=== PATIENT | male | born 1995 | race Caucasian/White ===

== ENCOUNTER 2016-11-15 14:51 | Emergency (ER) | payer SELFPAY ==
[~2016-11-15] VITALS: Ht 170.2 cm; Wt 54.4 kg
[2016-11-15 15:00] VITALS: BP 143/86
[2016-11-15] MEDS ORDERED: NAPR500T8 PO (15:25)
--- NOTE | 2016-11-15 15:26 | PHYS DOC ---
Past Medical History Past Medical History: Anxiety, Depression, Other Additional Past Medical Histor: ADD,PANIC ATTACKS Past Surgical History: No Surgical History Additional Information: SMOKES APPROXIMATELY 20 CIGARETTES A WEEK Alcohol Use: None Drug Use: Marijuana Adult General Chief Complaint Chief Complaint: BACK PAIN OR INJURY [facility] Patient is a 21 year old male presents with back pain for 4-5 months after lifting a box at work. Reports intermittent pain. Has not seen a doctor since incidient per patient. Denies numbness, tingling, incontinence, focal weakness, urinary symptoms. Has taken Tylenol, Tramadol and smoke marijuana to assist with pain at home with moderate relief. pain 03/25 currently. Request a work note till Saturday. Review of Systems Review of Systems Constitutional: Denies fever or chills Eyes: Denies change in visual acuity, redness, or eye pain HENT: Denies nasal congestion or sore throat Respiratory: Denies cough or shortness of breath Cardiovascular: No additional information not addressed in HPI GI: Denies abdominal pain, nausea, vomiting, bloody stools or diarrhea : Denies dysuria or hematuria Musculoskeletal: Back pain 4-5 months Integument: Denies rash or skin lesions Neurologic: Denies headache, focal weakness or sensory changes Endocrine: Denies polyuria or polydipsia Allergies Allergies Allergies Coded Allergies Type Severity Reaction Last Updated Verified No Known Drug Allergies 11/15/16 No Physical Exam Physical Exam Constitutional: Well developed, no acute distress, non-toxic appearance. HENT: Normocephalic, atraumatic, bilateral external ears normal, oropharynx moist, no oral exudates, nose normal. Eyes: PERRLA, EOMI, conjunctiva normal, no discharge. Neck: Normal range of motion, no tenderness, supple, no stridor. Cardiovascular:Heart rate regular rhythm, no murmur Lungs & Thorax: Bilateral breath sounds clear to auscultation Abdomen: Bowel sounds normal, soft, no tenderness, no masses, no pulsatile masses. Skin: Warm, dry, no erythema, no rash. Back: No midline tenderness, step off, deformity or crepitus. Left lumbar paraspinous tenderness Extremities: No tenderness, no cyanosis, no clubbing, ROM intact, no edema. [] Neurologic: Alert and oriented X 3, normal motor function, normal sensory function, no focal deficits noted. Psychologic: Affect normal, judgement normal, mood normal. [] Current Patient Data Vital Signs Vital Signs Date Time Temp Pulse Resp B/P Pulse Ox O2 Delivery O2 Flow Rate FiO2 11/15/16 15:00 98.5 90 18 143/86 98 Room Air 98.5 EKG EKG [] Radiology/Procedures Radiology/Procedures [] Impressions: 1. back pain Course & Med Decision Making Course & Med Decision Making Pertinent Labs and Imaging studies reviewed. (See chart for details) [] Dragon Disclaimer Dragon Disclaimer This electronic medical record was generated, in whole or in part, using a voice recognition dictation system. Departure Departure Impression: Primary Impression: Back pain Disposition: HOME, SELF-CARE Condition: STABLE Referrals: Yao WOOTEN MD Patient Instructions: Back Injury Prevention, [id number], Back Pain, Adult, [id number] Additional Instructions: Take medication as prescribed. Follow up with primary doctor in 1-2 days. return if any problems or concerns Scripts Naproxen 500 Mg Tablet.dr1 Tab PO BID PRN PAIN #30 TAB Ref 0 Prov:WAQAS CULVER APRN 11/15/16 WAQAS CULVER APRN Nov 15, 2016 15:25
== END 2016-11-15 15:31 | disposition home or self-care (01) ==
LOC: ER 14:51
DX: M54.5 Low back pain (principal); F32.9 Major depressive disorder, single episode, unspecified; F41.0 Panic disorder [episodic paroxysmal anxiety]; F98.8 Other specified behavioral and emotional disorders with onset usually occurring in childhood and adolescence; F17.210 Nicotine dependence, cigarettes, uncomplicated; F12.10 Cannabis abuse, uncomplicated
CPT/HCPCS: 99283

== ENCOUNTER 2017-03-19 10:30 | Emergency (ER) | payer SELFPAY ==
[~2017-03-19] VITALS: Ht 170.2 cm; Wt 54.4 kg
[~2017-03-19 10:30] MED LIST: NAPR500T8 PO
[2017-03-19 11:13] LABS: BILIRUBIN,URINE NEGATIVE (NEG); GLUCOSE,URINE NEGATIVE (NEG); NITRITE,URINE NEGATIVE (NEG); PH,URINE 7.5; PROTEIN,URINE NEGATIVE (NEG-TRACE); UROBILINOGEN,URINE 0.2 mg/dL (0.2 mg/dL)
[2017-03-19 11:17] LABS: BARBITURATES NEG (NEG); BENZODIAZEPINES NEG (NEG); CANNABINOIDS POS (NEG); COCAINE NEG (NEG); METHADONE NEG (NEG); OPIATES NEG (NEG); PHENCYCLIDINE NEG (NEG)
[2017-03-19 11:24] LABS: BACTERIA,URINE 0 /HPF (0-FEW); RBC,URINE 0 /HPF (0-2); SQUAMOUS EPITHELIAL CELL,UR OCC /LPF; WBC,URINE 0 /HPF (0-4)
--- NOTE | 2017-03-19 11:50 | PHYS DOC ---
Past Medical History Past Medical History: Anxiety, Depression, Other Additional Past Medical Histor: ADD,PANIC ATTACKS Past Surgical History: No Surgical History Alcohol Use: Occasionally Drug Use: Marijuana Adult General Chief Complaint Chief Complaint: LOWER BACK PAIN OR INJURY [facility] HPI Patient is a 21 year old male with history of anxiety and depression who presents today complaining of bilateral low back pain and kidney pain for 1 year. Patient denies any known injury. Patient states he has history of kidney stones when he was young. He states he is suspicious he has been passing a couple kidney stones though he denies any hematuria, denies any urgency or frequency but states he has had intermittent dysuria, he would like to be checked for STDs and treated. He states he took Klonopin tablets from a friend today. Patient denies any nausea vomiting. Denies any fever. PCP none Review of Systems Review of Systems Constitutional: Per history of present illness Eyes: Denies change in visual acuity, redness, or eye pain [] HENT: Denies nasal congestion or sore throat [] Respiratory: Denies cough or shortness of breath [] Cardiovascular: No additional information not addressed in HPI [] GI: Per history of present illness : See history of present illness Musculoskeletal: Back pain, flank pain Integument: Denies rash or skin lesions [] Neurologic: Denies headache, focal weakness or sensory changes [] Endocrine: Denies polyuria or polydipsia [] Allergies Allergies Allergies Coded Allergies Type Severity Reaction Last Updated Verified No Known Drug Allergies 11/15/16 No Physical Exam Physical Exam Constitutional: Well developed, well nourished, no acute distress, non-toxic appearance. [] HENT: Normocephalic, atraumatic, bilateral external ears normal, oropharynx moist, no oral exudates, nose normal. [] Eyes: PERRLA, EOMI, conjunctiva normal, no discharge. [] Neck: Normal range of motion, no tenderness, supple, no stridor. [] Cardiovascular:Heart rate regular rhythm, no murmur [] Lungs & Thorax: Bilateral breath sounds clear to auscultation [] Abdomen: Bowel sounds normal, soft, no tenderness, no masses, no pulsatile masses. [] Skin: Warm, dry, no erythema, no rash. [] Back: No tenderness, no CVA tenderness. [] Extremities: No tenderness, no cyanosis, no clubbing, ROM intact, no edema. [] Neurologic: Alert and oriented X 3, normal motor function, normal sensory function, no focal deficits noted. [] Psychologic: Affect normal, judgement normal, mood normal. [] Current Patient Data Vital Signs Vital Signs Date Time Temp Pulse Resp B/P (MAP) Pulse Ox O2 Delivery O2 Flow Rate FiO2 03/19/17 10:39 98.3 106 18 139/86 (103) 96 Room Air 98.3 Lab Values Laboratory Tests Test 03/19/17 10:50 Urine Collection Type Unknown Urine Color Yellow Urine Clarity Clear Urine pH 7.5 Urine Specific [place] 1.010 Urine Protein Negative mg/dL (NEG-TRACE) Urine Glucose (UA) Negative mg/dL (NEG) Urine Ketones (Stick) Negative mg/dL (NEG) Urine Blood Negative (NEG) Urine Nitrite Negative (NEG) Urine Bilirubin Negative (NEG) Urine Urobilinogen Dipstick 0.2 mg/dL (0.2 mg/dL) Urine Leukocyte Esterase Negative (NEG) Urine RBC 0 /HPF (0-2) Urine WBC 0 /HPF (0-4) Urine Squamous Epithelial Cells Occ /LPF Urine Bacteria 0 /HPF (0-FEW) Urine Opiates Screen Neg (NEG) Urine Methadone Screen Neg (NEG) Urine Barbiturates Neg (NEG) Urine Phencyclidine Screen Neg (NEG) Urine Amphetamine/Methamphetamine Neg (NEG) Urine Benzodiazepines Screen Neg (NEG) Urine Cocaine Screen Neg (NEG) Urine Cannabinoids Screen Pos (NEG) Urine Ethyl Alcohol Neg (NEG) EKG EKG [] Radiology/Procedures Radiology/Procedures []PROCEDURE: CT ABDOMEN PELVIS WO CONTRAST Indication bilateral abdominal pain. Axial images through the abdomen and pelvis were obtained. Examination was tailored for the detection of renal and/or ureteral calculi. Note is made of a previous examination 12/23/2011. There are several soft tissue nodules in the visualized lower lung mays. These are new relative to the previous exam. In a 21-year-old male they likely reflect granulomatous disease. On the basis of imaging metastatic disease is not excluded. Clinical correlation advised. No acute finding is seen at either lung base. There is no pleural fluid. The liver and spleen appear unremarkable. The gallbladder appears grossly normal. No pancreatic pathology is seen. There are no adrenal masses. There are no renal calculi on either side. There is no hydronephrosis hydroureter or definite calcification seen along the course of either ureter. An acute finding in the abdomen is not apparent. No acute finding is seen in the pelvis. IMPRESSION: No acute finding seen in the abdomen or pelvis. Several soft tissue nodules in the visualized lower lung mays, new relative to the study 5 years ago. In a 21-year-old these are probably a reflection of prior granulomatous disease. Other etiologies are not entirely excluded but less likely given the patient's age. (This impression assumes no known malignancy in this patient).0 PQRS Compliance Statement: One or more of the following individualized dose reduction techniques were utilized for this examination: 1. Automated exposure control 2. Adjustment of the mA and/or kV according to patient size 3. Use of iterative reconstruction technique DICTATED and SIGNED BY: CUCO CARVAJAL MD DATE: 03/19/17 1213 CC: DELFIN ROWLEY APRN; NO PCP; NON,STAFF ~ Course & Med Decision Making Course & Med Decision Making Pertinent Labs and Imaging studies reviewed. (See chart for details) This is a 21-year-old male patient who presents today complaining of low back pain as well as flank pain for 1 year. Patient believes he has been passing kidney stone. Patient is also complaining of dysuria, he like to be tested for STDs and treated, he was given Flagyl Rocephin and azithromycin. Urine negative for infection. CT of the abdomen and pelvic was negative for any acute findings but was noted for some lung nodule with concern for malignancy or granulomatous disease. Patient states he has history of smoking. Denies any history of malignancy. He was discharged with instructions to consider smoking cessation and follow-up with a PCP from the list provided. He was discharged with naproxen and Flexeril for his chronic back pain. Dragon Disclaimer Dragon Disclaimer This electronic medical record was generated, in whole or in part, using a voice recognition dictation system. Departure Departure Impression: Primary Impression: Back pain Additional Impression: Concern about STD in male without diagnosis Disposition: 01 HOME, SELF-CARE Condition: STABLE Referrals: NO PCP (PCP) Follow-up with your own doctor in 1-2 weeks Patient Instructions: Back Pain, Adult Additional Instructions: You were seen for chronic back pain. Your CT of the abdomen and pelvic did not show any kidney stones. Please consider smoking cessation. Your CT is showing you could have lung masses or previous lung disease this needs to be followed up with a primary care doctor from the list provided. Scripts Cyclobenzaprine Hcl (CYCLOBENZAPRINE HCL) 10 Mg Tablet 1 TAB PO TID, #30 TAB Prov: DELFIN ROWLEY APRN 03/19/17 Naproxen (NAPROXEN) 500 Mg Tablet.dr 1 TAB PO BID, #60 TAB 1 Refill Prov: DELFIN ROWLEY APRN 03/19/17 Problem Qualifiers Primary Impression: Back pain Back pain location: low back pain Chronicity: chronic Back pain laterality : bilateral Sciatica presence: without sciatica Qualified Codes: M54.5 - Low back pain; G89.29 - Other chronic pain DELFIN ROWLEY APRN Mar 19, 2017 11:50
--- NOTE | 2017-03-19 12:22 | RAD ---
Indication bilateral abdominal pain. Axial images through the abdomen and pelvis were obtained. Examination was tailored for the detection of renal and/or ureteral calculi. Note is made of a previous examination 12/23/2011. There are several soft tissue nodules in the visualized lower lung mays. These are new relative to the previous exam. In a 21-year-old male they likely reflect granulomatous disease. On the basis of imaging metastatic disease is not excluded. Clinical correlation advised. No acute finding is seen at either lung base. There is no pleural fluid. The liver and spleen appear unremarkable. The gallbladder appears grossly normal. No pancreatic pathology is seen. There are no adrenal masses. There are no renal calculi on either side. There is no hydronephrosis hydroureter or definite calcification seen along the course of either ureter. An acute finding in the abdomen is not apparent. No acute finding is seen in the pelvis. IMPRESSION: No acute finding seen in the abdomen or pelvis. Several soft tissue nodules in the visualized lower lung mays, new relative to the study 5 years ago. In a 21-year-old these are probably a reflection of prior granulomatous disease. Other etiologies are not entirely excluded but less likely given the patient's age. (This impression assumes no known malignancy in this patient).0 PQRS Compliance Statement: One or more of the following individualized dose reduction techniques were utilized for this examination: 1. Automated exposure control 2. Adjustment of the mA and/or kV according to patient size 3. Use of iterative reconstruction technique
[2017-03-19] MEDS ORDERED: NAPR500T8 PO (12:44)
[2017-03-19] MEDS ORDERED: CYCL10TA2 PO (12:44)
[2017-03-19 13:00] VITALS: BP 110/77
[2017-03-19] MEDS ORDERED: cefTRIAXone IM 250 MG VIAL IM ONE (13:15)
[2017-03-19] MEDS ORDERED: metroNIDAZOLE 500 MG TABLET PO ONE (13:15)
[2017-03-19] MEDS ORDERED: AZITHROMYCIN 250 MG TABLET. PO ONE (13:15)
== END 2017-03-19 13:27 | disposition home or self-care (01) ==
LOC: ER 10:30
DX: Z11.3 Encounter for screening for infections with a predominantly sexual mode of transmission (principal); G89.29 Other chronic pain; M54.5 Low back pain; F17.200 Nicotine dependence, unspecified, uncomplicated; F12.10 Cannabis abuse, uncomplicated; F98.8 Other specified behavioral and emotional disorders with onset usually occurring in childhood and adolescence; F41.9 Anxiety disorder, unspecified; F32.9 Major depressive disorder, single episode, unspecified; Z87.442 Personal history of urinary calculi
CPT/HCPCS: 36415; 74176; 80305; 80320; 81001; 87491; 87591; 96372; 99285; J0696; Q0144; G0481

== ENCOUNTER 2017-11-06 16:54 | Emergency (ER) | payer BC ==
[2017-11-06] MEDS: traMADol 50 MG TABLET PO ×2 (17:57)
== END 2017-11-06 18:42 | disposition home or self-care (01) ==
LOC: ER 16:54
DX: R07.81 Pleurodynia (principal); F41.9 Anxiety disorder, unspecified; F32.9 Major depressive disorder, single episode, unspecified; F12.10 Cannabis abuse, uncomplicated; F41.0 Panic disorder [episodic paroxysmal anxiety]; Z87.891 Personal history of nicotine dependence
CPT/HCPCS: 71046; 99284

== ENCOUNTER 2018-05-09 03:05 | Emergency (ER) | payer BC ==
[~2018-05-09] VITALS: Ht 170.2 cm; Wt 52.2 kg
[~2018-05-09 03:05] MED LIST changes: +CYCL10TA2 PO
[2018-05-09] MEDS ORDERED: ONDANSETRON PF 4 MG/2 ML VIAL. IV ONE (03:30)
[2018-05-09] MEDS ORDERED: KETOROLAC 15 MG/ML VIAL. IV ONE (03:30)
[2018-05-09] MEDS ORDERED: IV NORMAL SALINE 1000ML BAG 1,000 ML IV SCH (03:30)
[2018-05-09 03:37] LABS: BASO # 0.1 x10^3/uL (0.0-0.2); BASO % 1 % (0-3); EOS # 0.1 x10^3/uL (0.0-0.7); EOS % 2 % (0-3); HEMATOCRIT 46.1 % (39.0-53.0); HEMOGLOBIN 16.5 g/dL (13.0-17.5); LYMPH # 2.9 x10^3/uL (1.0-4.8); LYMPH % 36 % (24-48); MEAN CORPUSCULAR HEMOGLOBIN 33 pg (25-35); MEAN CORPUSCULAR HGB CONC 36 g/dL (31-37); MEAN CORPUSCULAR VOLUME 92 fL (79-100); MONO # 0.7 x10^3/uL (0.0-1.1); MONO % 9 % (0-9); NEUT # 4.2 x10^3uL (1.8-7.7); NEUT % 52 % (31-73); PLATELET COUNT 321 x10^3/uL (140-400); RED BLOOD COUNT 4.99 x10^6/uL (4.30-5.70); RED CELL DISTRIBUTION WIDTH 12.8 % (11.5-14.5)
[2018-05-09 03:44] LABS: CALCIUM 8.8 mg/dL (8.5-10.1); CREATININE 0.9 mg/dL (0.7-1.3); GFR 106.5; POTASSIUM 3.8 mmol/L (3.5-5.1)
[2018-05-09 03:50] LABS: ALBUMIN 4.2 g/dL (3.4-5.0); ALBUMIN/GLOBULIN RATIO 1.2 (1.0-1.7); TOTAL BILIRUBIN 0.5 mg/dL (0.2-1.0); TOTAL PROTEIN 7.6 g/dL (6.4-8.2)
--- NOTE | 2018-05-09 04:10 | RAD ---
INDICATION: bilateral flank pain COMPARISON: March 19, 2017 TECHNIQUE: Axial CT images obtained through the abdomen and pelvis without contrast. Limited assessment of solid organ structures and vasculature secondary to lack of intravenous contrast. One or more of the following individualized dose reduction techniques were utilized for this examination: 1. Automated exposure control; 2. Adjustment of the mA and/or kV according to patient size; 3. Use of iterative reconstruction technique. FINDINGS: Multiple nodules are again seen in the partially visualized bilateral lower lungs. This includes several at the right lung base measuring up to about 8 mm and several at left lung base measuring up to about 8 mm. Abdominal aorta is not grossly aneurysmal. No intrahepatic bile duct dilation. No peripancreatic fluid collection. Spleen unremarkable. 13 mm suspected cystic lesion left kidney. Prominence of left extrarenal pelvis. Urinary bladder is partially distended. No definite right-sided hydronephrosis. No dilated loops of bowel to suggest obstruction. IMPRESSION: 1. No definite evidence of bowel obstruction. 2. Prominence of left extrarenal pelvis again seen without a definite obstructive ureter stone. 3. Repeat demonstration of numerous pulmonary nodules at the partially visualized lung bases which was also present on March 19, 2017. These are of unknown etiology and correlation is needed as to whether the patient has any symptoms of a chronic inflammatory or infectious process or any history of neoplasm but overall these appear similar when compared to 2017 but only a small portion of the chest is evaluated on this exam Electronically signed by: Deon Rasmussen MD (05/09/2018 4:07 AM) [facility]
[2018-05-09 04:16] LABS: BILIRUBIN,URINE NEGATIVE (NEG); CLARITY,URINE CLOUDY; COLOR,URINE YELLOW; NITRITE,URINE NEGATIVE (NEG); PH,URINE 8.5; PROTEIN,URINE NEGATIVE (NEG-TRACE)
[2018-05-09 04:21] LABS: AMORPHOUS SEDIMENT,UR PRESENT /HPF; BACTERIA,URINE 0 /HPF (0-FEW); RBC,URINE 0 /HPF (0-2); SQUAMOUS EPITHELIAL CELL,UR OCC /LPF; WBC,URINE 0 /HPF (0-4)
[2018-05-09] MEDS ORDERED: cefTRIAXone IM 250 MG VIAL IM ONE (05:00)
[2018-05-09] MEDS ORDERED: AZITHROMYCIN 250 MG TABLET. PO ONE (05:00)
--- NOTE | 2018-05-09 05:02 | PHYS DOC ---
Past Medical History Past Medical History: Anxiety, Depression, Other Additional Past Medical Histor: ADD,PANIC ATTACKS Past Surgical History: No Surgical History Alcohol Use: Occasionally Drug Use: Marijuana Adult General Chief Complaint Chief Complaint: FLANK PAIN HPI HPI Patient is a 22-year-old male who presents with complaint of lower back pain as well as urinary discomfort has been present for the last week. He indicates that he has had a clear penile discharge as well. He indicates that he has not had intercourse in close to a year. He denies any fever. He rates his pain to be a 6 out of 10. He states that nothing improves the pain and urinating worsens the pain. Review of Systems Review of Systems Constitutional: Denies fever or chills [] Respiratory: Denies cough or shortness of breath [] Cardiovascular: Denies chest pain[] GI: Denies abdominal pain, nausea, vomiting or diarrhea [] : Complains of dysuria and penile discharge[] Musculoskeletal: Complains of lower back pain[] All other systems were reviewed and found to be within normal limits, except as documented in this note. Current Medications Current Medications Current Medications Medications (Trade) Dose Ordered Sig/Milly Start Time Stop Time Status Last Admin Dose Admin Azithromycin (Zithromax) 1,000 mg 1X ONCE 05/09/18 05:00 05/09/18 05:01 DC Ceftriaxone Sodium (Rocephin Im) 250 mg 1X ONCE 05/09/18 05:00 05/09/18 05:01 DC Ketorolac Tromethamine (Toradol 15mg Vial) 15 mg 1X ONCE 05/09/18 03:30 05/09/18 03:31 DC 05/09/18 03:30 15 MG Ondansetron HCl (Zofran) 4 mg 1X ONCE 05/09/18 03:30 05/09/18 03:31 DC 05/09/18 03:30 4 MG Sodium Chloride 1,000 ml @ 1,000 mls/hr Q1H 05/09/18 03:30 05/09/18 04:29 DC 05/09/18 03:30 1,000 MLS/HR Allergies Allergies Allergies Coded Allergies Type Severity Reaction Last Updated Verified No Known Drug Allergies 11/15/16 No Physical Exam Physical Exam Constitutional: Well developed, well nourished, no acute distress, non-toxic appearance. [] HENT: Normocephalic, atraumatic, bilateral external ears normal, oropharynx moist, no oral exudates, nose normal. [] Eyes: PERRLA, EOMI, conjunctiva normal, no discharge. [] Neck: Normal range of motion, no tenderness, supple, no stridor. [] Cardiovascular:Heart rate regular rhythm, no murmur [] Lungs & Thorax: Bilateral breath sounds clear to auscultation [] Abdomen: Bowel sounds normal, soft, with minimal suprapubic tenderness. [] Skin: Warm, dry, no erythema, no rash. [] Back: There is mild tenderness to palpation in the lower lumbar paraspinal musculature bilaterally. [] Extremities: No tenderness, no cyanosis, no clubbing, ROM intact, no edema. [] Neurologic: Alert and oriented X 3, normal motor function, normal sensory function, no focal deficits noted. [] Current Patient Data Vital Signs Vital Signs Date Time Temp Pulse Resp B/P (MAP) Pulse Ox O2 Delivery O2 Flow Rate FiO2 05/09/18 03:22 97.9 94 18 130/80 (97) 99 Room Air 97.9 Lab Values Laboratory Tests Test 05/09/18 03:28 05/09/18 04:12 White Blood Count 8.0 x10^3/uL (4.0-11.0) Red Blood Count 4.99 x10^6/uL (4.30-5.70) Hemoglobin 16.5 g/dL (13.0-17.5) Hematocrit 46.1 % (39.0-53.0) Mean Corpuscular Volume 92 fL (79-100) Mean Corpuscular Hemoglobin 33 pg (25-35) Mean Corpuscular Hemoglobin Concent 36 g/dL (31-37) Red Cell Distribution Width 12.8 % (11.5-14.5) Platelet Count 321 x10^3/uL (140-400) Neutrophils (%) (Auto) 52 % (31-73) Lymphocytes (%) (Auto) 36 % (24-48) Monocytes (%) (Auto) 9 % (0-9) Eosinophils (%) (Auto) 2 % (0-3) Basophils (%) (Auto) 1 % (0-3) Neutrophils # (Auto) 4.2 x10^3uL (1.8-7.7) Lymphocytes # (Auto) 2.9 x10^3/uL (1.0-4.8) Monocytes # (Auto) 0.7 x10^3/uL (0.0-1.1) Eosinophils # (Auto) 0.1 x10^3/uL (0.0-0.7) Basophils # (Auto) 0.1 x10^3/uL (0.0-0.2) Sodium Level 142 mmol/L (136-145) Potassium Level 3.8 mmol/L (3.5-5.1) Chloride Level 106 mmol/L (98-107) Carbon Dioxide Level 29 mmol/L (21-32) Anion Gap 7 (6-14) Blood Urea Nitrogen 8 mg/dL (8-26) Creatinine 0.9 mg/dL (0.7-1.3) Estimated GFR (Cockcroft-Gault) 106.5 BUN/Creatinine Ratio 9 (6-20) Glucose Level 106 mg/dL (70-99) H Calcium Level 8.8 mg/dL (8.5-10.1) Total Bilirubin 0.5 mg/dL (0.2-1.0) Aspartate Amino Transferase (AST) 14 U/L (15-37) L Alanine Aminotransferase (ALT) 22 U/L (16-63) Alkaline Phosphatase 102 U/L (46-116) Total Protein 7.6 g/dL (6.4-8.2) Albumin 4.2 g/dL (3.4-5.0) Albumin/Globulin Ratio 1.2 (1.0-1.7) Urine Collection Type Unknown Urine Color Yellow Urine Clarity Cloudy Urine pH 8.5 Urine Specific [place] 1.020 Urine Protein Negative mg/dL (NEG-TRACE) Urine Glucose (UA) Negative mg/dL (NEG) Urine Ketones (Stick) Negative mg/dL (NEG) Urine Blood Negative (NEG) Urine Nitrite Negative (NEG) Urine Bilirubin Negative (NEG) Urine Urobilinogen Dipstick 1.0 mg/dL (0.2 mg/dL) Urine Leukocyte Esterase Negative (NEG) Urine RBC 0 /HPF (0-2) Urine WBC 0 /HPF (0-4) Urine Squamous Epithelial Cells Occ /LPF Urine Amorphous Sediment Present /HPF Urine Bacteria 0 /HPF (0-FEW) Laboratory Tests 05/09/18 03:28 Laboratory Tests 05/09/18 03:28 EKG EKG [] Radiology/Procedures Radiology/Procedures [] Course & Med Decision Making Course & Med Decision Making Pertinent Labs and Imaging studies reviewed. (See chart for details) [] Dragon Disclaimer Dragon Disclaimer This electronic medical record was generated, in whole or in part, using a voice recognition dictation system. Departure Departure Impression: Primary Impression: Prostatitis Disposition: HOME, SELF-CARE Condition: STABLE Referrals: NO PCP (PCP) Patient Instructions: Prostatitis Additional Instructions: Take prescribed medication as directed and follow-up with your primary care provider in the next few days. Scripts Sulfamethoxazole/Trimethoprim (BACTRIM DS TABLET) 1 Each Tablet 1 TAB PO BID, #20 TAB Prov: JOON ENCISO Jr. DO 05/09/18 Problem Qualifiers Primary Impression: Prostatitis Prostatitis type: unspecified Qualified Codes: N41.9 - Inflammatory disease of prostate, unspecified JOON ENCISO Jr. DO May 09, 2018 05:02
[2018-05-09] MEDS ORDERED: SULF1TAB24 PO (05:07)
[2018-05-09 05:31] VITALS: BP 120/66
== END 2018-05-09 05:32 | disposition home or self-care (01) ==
LOC: ER 03:05
DX: N41.9 Inflammatory disease of prostate, unspecified (principal); F41.9 Anxiety disorder, unspecified; F32.9 Major depressive disorder, single episode, unspecified
CPT/HCPCS: 36415; 74176; 80053; 81001; 85025; 87491; 87591; 96372; 96374; 96375; 99285; J0696; J1885; J2405; J7030; Q0144